=== PATIENT | female | born 1960 | race Caucasian/White ===

== ENCOUNTER 2017-03-02 19:45 | Emergency (ER) | payer MEDICAID, OTHER ==
[~2017-03-02] VITALS: Ht 167.6 cm; Wt 72.6 kg
[2017-03-02] MEDS ORDERED: NF-DICLTB PO (20:06)
[2017-03-02] MEDS ORDERED: CLON0.5T3 PO (20:06)
[2017-03-02] MEDS ORDERED: OXYC-197 PO (20:06)
[2017-03-02] MEDS ORDERED: GABA600T2 PO (20:06)
[2017-03-02] MEDS ORDERED: CYCL10TA9 PO (20:06)
--- NOTE | 2017-03-02 20:12 | ED Cough/URI ---
General Chief Complaint: Cough/Cold/Flu Symptoms Stated Complaint: COUGH SORE THROAT FEVER Source: patient Exam Limitations: no limitations History of Present Illness Time seen by provider: 20:02 Initial Comments Patient presents with a few weeks of cough, shortness of breath, sore throat, hoarseness, no fever or chills but some post tussive emesis. She smokes one pack a day states that she does not have COPD. She is followed recently with [facility]. No sick contacts or travel outside the [facility]. No skin rash. She has had headaches for the past 2 or 3 days and a fullness in her ears. Allergies and Home Medications Allergies Coded Allergies: No Known Drug Allergies (Unverified , 03/02/17) Home Medications Clonazepam 0.5 Mg Tablet, 0.5 MG PO BID PRN for prn, (Reported) Cyclobenzaprine HCl 10 Mg Tablet, 10 MG PO BID, #60 (Reported) Diclofenac/Misoprostol 1 Tab Tab, Unknown Dose PO UD, (Reported) Gabapentin 600 Mg Tablet, 600 MG PO TID PRN for prn, (Reported) Oxycodone HCl/Acetaminophen 1 Each Tablet, 1 EACH PO DAILY PRN for prn, ( Reported) Constitutional: No chills, No diaphoresis, No fever, malaise EENTM: hoarseness, mouth swelling, tearing, throat swelling, No ear discharge, No ear pain Respiratory: cough, phlegm, short of breath Cardiovascular: No Hx of Intervention, No palpitations, No syncope Gastrointestinal: No abdominal pain, No constipation, No diarrhea, nausea, No vomiting Genitourinary: No dysuria, No hematuria Skin: No pruritus, No rash Past Tffjrel-Torlzx-Yrxdhs Hx Patient Social History Alcohol Use: Rarely Uses Smoking Status: Current Everyday Smoker (1 ppd) Type Used: Cigarettes Recent Foreign Travel: No Contact w/Someone Who Travel: No Physical Exam Vital Signs Vital Sign - Last 12Hours 03/02/17 19:53 Temp 97.4 Pulse 81 Resp 20 B/P (MAP) 137/90 Pulse Ox 99 O2 Delivery Room Air Capillary Refill : General Appearance: WD/WN, mild distress Eyes: Bilateral Eye EOMI, Bilateral Eye Normal Inspection, Bilateral Eye PERRL HEENT: TM abnormal (L) (retracted), pharyngeal erythema Neck: full range of motion, supple, normal inspection, tender midline Respiratory: chest non-tender, normal breath sounds, wheezing (few scattered) Cardiovascular: normal peripheral pulses, regular rate, rhythm, no edema, no murmur Gastrointestinal: normal bowel sounds, non tender, soft Neurologic/Psychiatric: alert, oriented x 3 Skin: normal color, warm/dry Progress/Results/Core Measures Results/Orders Lab Results Laboratory Tests Test 03/02/17 20:05 Range/Units Group A Streptococcus Screen NEGATIVE NEGATIVE My Orders Orders - JAI HAND Rapid Strep A Screen (03/02/17 20:12) Chest Pa/Lat (2 View) (03/02/17 20:12) Albuterol Pre-Mix Nebs (Rt) (Proventil P (03/02/17 20:15) Vital Signs/I&O Vital Sign - Last 12Hours 03/02/17 03/02/17 03/02/17 19:53 19:53 20:20 Temp 97.4 Pulse 81 Resp 20 B/P (MAP) 137/90 Pulse Ox 99 98 O2 Delivery Room Air Room Air Progress Note : Time: 20:11 Progress Note Patient with long-standing smoking history now with upper respirator symptoms and some wheezing. We'll obtain a chest x-ray gave her a breathing treatment and send her out on appropriate therapy. Flonase for her eustachian dysfunction. Strep screen Diagnostic Imaging Diagonstic Imaging: Xray Plain Films/CT/US/NM/MRI: chest Comments 10 ribs above the non-flattened diaphragm with normal looking lung parenchyma. No signs of edema or other cardiopulmonary abnormality acutely. She does not have any other osseous or soft tissue findings acutely. Reviewed: Reviewed by Me Departure Impression Impression: Primary Impression: Upper respiratory infection Qualified Codes: J06.9 - Acute upper respiratory infection, unspecified; B97.89 - Other viral agents as the cause of diseases classified elsewhere Additional Impression: Bronchitis Disposition: 01 HOME, SELF-CARE Condition: Stable Departure-Patient Inst. Decision time for Depature: 20:35 Referrals: BLACK HUMPHREY MD (PCP) Primary Care Physician Patient Instructions: Acute Bronchitis, Adult (DC) Add. Discharge Instructions: You have been diagnosed with an upper respiratory tract infection most likely viral. There is been a negative strep screen however in 2 days you can call back up to the hospital and get the results of the culture to see if it was indeed positive for strep. If this is the case then you should fill the antibiotic prescription that was sent out, azithromycin and take it as prescribed. If you're getting worse symptoms of the next 2-3 days then you should fill the azithromycin as well. Otherwise you have albuterol to be used if you're having wheezing or tightness in her chest. You have Tessalon Perles be taken every 6 hours if you're having a cough. You've also been given a short course of prednisone to be taken over the next 5 days. It is okay to spread it out every other day if you're feeling wired on the redness on as this is a normal side effect to steroids in general. The symptoms usually resolve in 7-14 days. If you're having new or worsening or worrisome symptoms you should return to the ER or to your primary care physician. All discharge instructions reviewed with patient and/or family. Voiced understanding. Scripts Benzonatate (Tessalon Perle) 100 Mg Capsule 100 MG PO Q6H Y for COUGH, #30 CAP 0 Refills Prov: JAI HAND 03/02/17 Albuterol Sulfate (PROAIR HFA) 1 Puff Puff 2 PUFF IH Q4H Y for WHEEZING, #1 EACH 0 Refills 1 PUFF = 90 MCG Prov: JAI HAND 03/02/17 Prednisone (Prednisone) 20 Mg Tab 20 MG PO DAILY for 5 Days, #5 TAB 0 Refills Prov: JAI HAND 03/02/17 Azithromycin (Azithromycin) 250 Mg Tablet 250 MG PO UD, #6 TAB 0 Refills TAKE 2 TABLETS ON DAY ONE THEN TAKE 1 TABLET DAILY FOR FOUR MORE DAYS Prov: JAI HAND 03/02/17 Copy Copies To 1: TAMARA GALLARDO DO JAI HAND Mar 02, 2017 20:12
[2017-03-02] MEDS ORDERED: RT-ALBUTEROL SULF 2.5 MG/3 ML PRE-MIX VIAL IH SCH (20:15)
--- NOTE | 2017-03-02 20:31 | Diagnostic Imaging Report ---
INDICATION: Cough, congestion and wheezing EXAMINATION: PA and lateral views of the chest. FINDINGS: The heart size and vascularity are normal. Lungs are clear. There is no effusion. There is no acute bony abnormality. IMPRESSION: No acute abnormality is seen. Dictated by: Dictated on workstation # [id number]
[2017-03-02] MEDS ORDERED: AZIT250T5 PO ×2 (20:39→20:49)
[2017-03-02] MEDS ORDERED: RT-ALBUINH IH ×2 (20:39→20:49)
[2017-03-02] MEDS ORDERED: PRD20T PO ×2 (20:39→20:49)
[2017-03-02] MEDS ORDERED: BENZ-13 PO ×2 (20:39→20:49)
[2017-03-02] MEDS ORDERED: ONDN4T PO (20:49)
[2017-03-02 20:53] VITALS: BP 118/81
== END 2017-03-02 20:53 | disposition home or self-care (01) ==
LOC: EDUNIT# 19:45 → ER 19:49
DX: J06.9 Acute upper respiratory infection, unspecified (principal); J40 Bronchitis, not specified as acute or chronic; F17.210 Nicotine dependence, cigarettes, uncomplicated
CPT/HCPCS: 71020; 87430; 94640; 99282

== ENCOUNTER 2017-03-23 10:58 | Emergency (ER) | payer MEDICAID ==
[~2017-03-23] VITALS: Ht 167.6 cm; Wt 68.0 kg
[~2017-03-23 10:58] MED LIST: AZIT250T5 PO; BENZ-13 PO; CLON0.5T3 PO; CYCL10TA9 PO; GABA600T2 PO; NF-DICLTB PO; ONDN4T PO; OXYC-197 PO; PRD20T PO; RT-ALBUINH IH
[2017-03-23] MEDS ORDERED: RT-ALBUTEROL/IPRATROPIUM 3 ML (DUONEB) VIAL ONE (11:05)
[2017-03-23] MEDS ORDERED: RT-ALBUTEROL SULF 2.5 MG/3 ML PRE-MIX VIAL ONE (11:07)
[2017-03-23] MEDS ORDERED: DEXAMETHASONE PF 10 MG/ML (DECADRON) VIAL ONE (11:07)
[2017-03-23] MEDS ORDERED: DEXAMETHASONE 4 MG/ML SDV (DECADRON) IH ONE (11:15)
[2017-03-23] MEDS ORDERED: RT-ALBUTEROL/IPRATROPIUM 3 ML (DUONEB) VIAL INH ONE (11:15)
[2017-03-23] MEDS ORDERED: ONDANSETRON 4 MG (ZOFRAN) ORAL DISSOLVE TAB ONE (11:15)
[2017-03-23] MEDS ORDERED: predniSONE 20 MG TAB PO ONE (11:15)
--- NOTE | 2017-03-23 11:29 | ED Cough/URI ---
General Chief Complaint: Cough/Cold/Flu Symptoms Stated Complaint: COUGH Nursing Triage Note: ILL SINCE FRIDAY, COUGHING, FEVER. COUGHING UP GREEN. COMPLETED STEROIDS AND ANTIBIOTICS Source: patient History of Present Illness Time seen by provider: 11:05 Initial Comments C/O PRODUCTIVE COUGH X 2 WEEKS--GREEN SPUTUM PT HAS HAD SUBJECTIVE FEVER AND SWEATS SINCE FRIDAY C/O SHORTNESS OF BREATH AND WHEEZING WAS SEEN HERE 03/02/17 FOR THIS PROBLEM AND WAS GIVEN RX FOR PREDNISONE, TESSALON, ALBUTEROL AND ZITHROMAX--STATES SYMPTOMS GOT BETTER, THEN WORSENED WHEN MEDICATIONS WERE FINISHED PCP: DR. Petra HUMPHREY Allergies and Home Medications Allergies Coded Allergies: morphine (Unverified Allergy, Unknown, 03/23/17) Home Medications Albuterol Sulfate 1 Puff Puff, 2 PUFF IH Q4H PRN for WHEEZING, #1 Ref 0 1 PUFF = 90 MCG Prescribed by: JAI HAND on 03/02/172048 Azithromycin 250 Mg Tablet, 250 MG PO UD, #6 Ref 0 TAKE 2 TABLETS ON DAY ONE THEN TAKE 1 TABLET DAILY FOR FOUR MORE DAYS Prescribed by: JAI HAND on 03/02/172048 Benzonatate 100 Mg Capsule, 100 MG PO Q6H PRN for COUGH, #30 Ref 0 Prescribed by: JAI HAND on 03/02/172048 Clonazepam 0.5 Mg Tablet, 0.5 MG PO BID PRN for prn, (Reported) Cyclobenzaprine HCl 10 Mg Tablet, 10 MG PO BID, #60 (Reported) Diclofenac/Misoprostol 1 Tab Tab, Unknown Dose PO UD, (Reported) Gabapentin 600 Mg Tablet, 600 MG PO TID PRN for prn, (Reported) Ondansetron HCl 4 Mg Tab, 4 MG PO Q6H PRN for NAUSEA/VOMITING-1ST LINE, #20 Ref 0 Prescribed by: JAI HAND on 03/02/172048 Oxycodone HCl/Acetaminophen 1 Each Tablet, 1 EACH PO DAILY PRN for prn, ( Reported) Prednisone 20 Mg Tab, 20 MG PO DAILY for 5 Days, #5 Ref 0 Prescribed by: JAI HAND on 03/02/172048 Constitutional: see HPI, fever EENTM: nose congestion, see HPI Respiratory: see HPI, cough, short of breath, wheezing Cardiovascular: no symptoms reported Gastrointestinal: no symptoms reported Genitourinary: no symptoms reported Musculoskeletal: no symptoms reported Skin: no symptoms reported Psychiatric/Neurological: No Symptoms Reported Hematologic/Lymphatic: No Symptoms Reported Immunological/Allergic: no symptoms reported Past Znjethn-Dtrzwi-Qcldha Hx Patient Social History Alcohol Use: Rarely Uses Recreational Drug Use: No (PAST HISTORY) Smoking Status: Current Everyday Smoker (1 PPD) Type Used: Cigarettes Recent Foreign Travel: No Contact w/Someone Who Travel: No Recent Infectious Disease Expo: No Recent Hopitalizations: No Immunizations Up To Date Tetanus Booster (TDap): Unknown PED Vaccines UTD: Yes Seasonal Allergies Seasonal Allergies: No Surgeries HX Surgeries: Yes (BACK, ROTATOR CUFF) Surgeries: Appendectomy, Orthopedic Respiratory Hx Respiratory Disorders: No Cardiovascular Hx Cardiac Disorders: No Neurological Hx Neurological Disorders: No Reproductive System Hx Reproductive Disorders: No Genitourinary Hx Genitourinary Disorders: No Gastrointestinal Hx Gastrointestinal Disorders: No Musculoskeletal Hx Musculoskeletal Disorders: Yes Musculoskeletal Disorders: Arthritis, Chronic Back Pain Endocrine Hx Endocrine Disorders: No HEENT HX ENT Disorders: No Cancer Hx Cancer: No Psychosocial Hx Psychiatric Problems: No Integumentary HX Skin/Integumentary Disorder: No Blood Transfusions Hx Blood Disorders: No Physical Exam Vital Signs Vital Sign - Last 12Hours 03/23/17 11:06 Temp 98.3 Pulse 93 Resp 24 B/P (MAP) 145/100 Pulse Ox 96 O2 Delivery Room Air Capillary Refill : Less Than 3 Seconds General Appearance: WD/WN, no apparent distress, other (CONTINUOUS HARSH COUGH , + ODOR OF CIGARETTES) HEENT: PERRL/EOMI, other (NASAL MUCOSAL EDEMA) Respiratory: no respiratory distress, no accessory muscle use, wheezing ( AUDIBLE EXPIRATORY WHEEZING), other (FREQUENT TIGHT/HARSH COUGH) Cardiovascular: regular rate, rhythm, no murmur Gastrointestinal: non tender, soft Extremities: no pedal edema, normal capillary refill Neurologic/Psychiatric: sanding machine buffer II-XII nml as tested, no motor/sensory deficits, alert, oriented x 3, other (ANXIOUS) Skin: normal color, warm/dry Progress/Results/Core Measures Results/Orders Micro Results Microbiology 03/23/17 Influenza Types A,B Antigen (TERRELL) - Final, Complete My Orders Orders - MAYKEL VERNON DO Albuterol/Ipra Inhalation Soln (Duoneb I (03/23/17 11:05) Albuterol Pre-Mix Nebs (Rt) (Proventil P (03/23/17 11:07) Prednisone Tablet (Deltasone Tablet) (03/23/17 11:15) Chest Pa/Lat (2 View) (03/23/17 11:11) Influenza A And B Antigens (03/23/17 11:11) Albuterol/Ipra Inhalation Soln (Duoneb I (03/23/17 11:15) Dexamethasone Injection (Decadron Inject (03/23/17 11:15) Rt Request For Service (03/23/17 11:11) Svn Sm Volume Nebulizer Rt-Rfs (03/23/17 11:11) Dexamethasone Pf Injection (Decadron Pf (03/23/17 11:07) Ondansetron Oral Dissolve Tab (Zofran (03/23/17 11:30) Ondansetron Oral Dissolve Tab (Zofran (03/23/17 11:15) Medications Given in ED Current Medications Medications Dose Ordered Sig/Rosi Route Start Time Stop Time Status Last Admin Dose Admin Albuterol Sulfate 2.5 mg STK-MED ONCE .ROUTE 03/23/17 11:07 03/23/17 11:11 DC 03/23/17 11:22 2.5 MG Albuterol/ Ipratropium 3 ml ONCE ONCE INH 03/23/17 11:15 03/23/17 11:16 DC 03/23/17 11:19 3 ML Dexamethasone Sodium Phosphate 20 mg ONCE ONCE IH 03/23/17 11:15 03/23/17 11:16 DC 03/23/17 11:22 20 MG Ondansetron HCl 4 mg ONCE ONCE PO 03/23/17 11:30 03/23/17 11:31 DC 03/23/17 11:21 4 MG Vital Signs/I&O Vital Sign - Last 12Hours 03/23/17 03/23/17 03/23/17 11:06 11:06 11:23 Temp 98.3 Pulse 93 Resp 24 B/P (MAP) 145/100 Pulse Ox 96 95 O2 Delivery Room Air Blood Pressure Mean: 115 Progress Note : Progress Note LUNGS ESSENTIALLY CLEAR AFTER NEB TREATMENT AND COUGH DECREASED DOES HAVE ACCESS TO NEBULIZER AT HOME, AND WOULD LIKE RX FOR MEDICATION FOR IT Diagnostic Imaging Comments CXR--NO ACUTE PROCESS, PER RADIOLOGIST REPORT @ 1146 Reviewed: Reviewed by Me Departure Impression Impression: Primary Impression: Bronchitis Disposition: 01 HOME, SELF-CARE Condition: Improved Departure-Patient Inst. Referrals: BLACK HUMPHREY MD (PCP/Family) Primary Care Physician Patient Instructions: Acute Bronchitis, Adult (DC) Add. Discharge Instructions: NO SMOKING TYLENOL AND MOTRIN NEEDED FOR PAIN OR FEVER FOLLOW UP WITH DR. HUMPHREY IN 2-3 DAYS FOR FURTHER CARE All discharge instructions reviewed with patient and/or family. Voiced understanding. Scripts Benzonatate (Tessalon Perle) 100 Mg Capsule 1-2 TAB PO TID for Cough, #30 CAP Prov: MAYKEL VERNON DO 03/23/17 Budesonide (Pulmicort) 1 Mg/2 Ml Ampul.neb 1 MG IH BID, #1 INHALER Prov: MAYKEL VERNON DO 03/23/17 D-Methorphan Hb/Prometh HCl (Promethazine-Dm Syrup) 118 Ml Syrup 1-2 TSP PO Q4H for Cough, #120 ML Prov: MAYKEL VERNON DO 03/23/17 Methylprednisolone (Medrol) 4 Mg Tab.ds.pk 4 MG PO UD, #1 PKG Prov: MAYKEL VERNON DO 03/23/17 Levofloxacin (Levaquin) 500 Mg Tablet 500 MG PO DAILY for INFECTION, #10 TAB Prov: MAYKEL VERNON DO 03/23/17 Albuterol Sulfate (Albuterol Sulfate) 2.5 Mg/3 Ml Vial.neb 2.5 MG IH Q4H, #1 EA Prov: MAYKEL VERNON DO 03/23/17 MAYKEL VERNON DO March 23, 2017 11:29
[2017-03-23] MEDS ORDERED: ONDANSETRON 4 MG (ZOFRAN) ORAL DISSOLVE TAB PO ONE (11:30)
--- NOTE | 2017-03-23 11:44 | Diagnostic Imaging Report ---
EXAMINATION: PA and lateral chest at 1140 AM INDICATION: Cough The heart size is within normal limits and stable when compared to 03/02/17. The lungs are clear. There is still no evidence for failure, pneumonia or for a pleural effusion to suggest an acute abnormality. There is a very small area of slightly increased density overlying the left lung base on the PA view. This is probably secondary to superimposition. The mediastinum is not widened. The osseous structures are intact. IMPRESSION: There is no evidence for an acute cardiopulmonary abnormality. Dictated by: Dictated on workstation # [id number]
[2017-03-23] MEDS ORDERED: BUDE1AMP IH (11:54)
[2017-03-23] MEDS ORDERED: METH4TAB PO (11:54)
[2017-03-23] MEDS ORDERED: BENZ-13 PO (11:54)
[2017-03-23] MEDS ORDERED: D-ME118S7 PO (11:54)
[2017-03-23] MEDS ORDERED: ALBU2.5V4 IH (11:54)
[2017-03-23] MEDS ORDERED: LEVO500T2 PO (11:54)
[2017-03-23 12:03] VITALS: BP 140/81
== END 2017-03-23 12:02 | disposition home or self-care (01) ==
LOC: EDUNIT# 10:58 → ER 10:59
DX: J40 Bronchitis, not specified as acute or chronic (principal); F17.210 Nicotine dependence, cigarettes, uncomplicated; Z79.899 Other long term (current) drug therapy
CPT/HCPCS: 71020; 87804; 94640; 99282

== ENCOUNTER → 2017-07-11 | Outpatient (CLI) | payer MEDICAID ==
[~2017-07-11] MED LIST changes: +ALBU2.5V4 IH; +AZIT250T12 PO; -AZIT250T5 PO; +BUDE1AMP IH; +D-ME118S7 PO; +LEVO500T2 PO; +METH4TAB PO
--- NOTE | 2017-07-29 19:32 | Diagnostic Imaging Report ---
Bilateral screening mammogram 2D views with tomosynthesis The current study was also evaluated with a Computer Aided Detection (CAD) system. Indication: Screening. No current complaints stated on the questionnaire. COMPARISON: 02/02/15 FINDINGS: The breasts are composed of heterogeneously dense parenchyma which may decrease mammographic sensitivity. There are benign-appearing calcifications seen. Allowing for technique and positional differences, no suspicious change is seen. IMPRESSION: No significant change. ACR BI-RADS Category 2: Benign findings. Result letter will be mailed to the patient. Note: At least 10% of breast cancer is not imaged by mammography. Dictated by: Dictated on workstation # [id number]
== END ==
LOC: RAD 12:57
PROVIDERS: ATTEND Family Medicine
DX: Z12.31 Encounter for screening mammogram for malignant neoplasm of breast (principal)
CPT/HCPCS: 77067

== ENCOUNTER 2017-10-19 10:19 | Emergency (ER) | payer MEDICAID ==
[~2017-10-19] VITALS: Ht 167.6 cm; Wt 68.0 kg
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
--- OUTSIDE RECORDS SUMMARY | 2017-10-19 10:24 | XMS REPORT ---
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 285955570 Problem Anxiety F41.9 Active 29372008 ALLERGIES Substance Reaction Event Type Date Status Morphine Sulfate nausea Drug Allergy Oct, Active SOCIAL HISTORY No smoking Hx information available PLAN OF CARE Activity Details Follow Up 4 Months Reason:Pain mgmt VITAL SIGNS Height 65 in 2016-10-30 Weight 167.1 lbs 2016-10-30 Temperature 97.9 degrees Fahrenheit 2016-10-30 Heart Rate 84 bpm 2016-10-30 Respiratory Rate 20 2016-10-30 BMI 27.80 kg/m2 2016-10-30 Blood pressure systolic 122 mmHg 2016-10-30 Blood pressure diastolic 82 mmHg 2016-10-30 MEDICATIONS Medication Instructions Dosage Frequency Start Date End Date Duration Status Gabapentin 800 MG Orally 3 times a day 1 tablet 8h 30 days Active Cyclobenzaprine HCl 10 MG TAKE ONE TABLET BY MOUTH TWICE DAILY 30 Active Klonopin 0.5 MG Orally Twice a day 1 tablet 12h 28 days Active Cymbalta 60 mg Orally Once a day 1 capsule 24h Dec, 90 days Active Hydrocodone-Acetaminophen 5-325 MG Orally Once a day 1 tablet as needed 24h Oct, 28 days Active Arthrotec 75-0.2 MG Orally Once a day 1 tablet 24h 25 Aug, 2016 90 days Active RESULTS Name Result Date Reference Range AMERITOX 2016-10-30 PROCEDURES Procedure Date Ordered Related Diagnosis Body Site CRYOTHERAPY OF SKIN 2016-10-30 N/A CRYOTHERAPY OF SKIN Oct 30, 2016 No Charge Oct 30, 2016 Office Visit, Est Pt., Level 3 Oct 30, 2016 IMMUNIZATIONS No Known Immunizations
--- OUTSIDE RECORDS SUMMARY | 2017-10-19 10:24 | XMS REPORT ---
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
--- OUTSIDE RECORDS SUMMARY | 2017-10-19 10:24 | XMS REPORT ---
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 109621970 Problem Anxiety F41.9 Active 82411665 ALLERGIES Substance Reaction Event Type Date Status Morphine Sulfate nausea Drug Allergy Oct, Active SOCIAL HISTORY No smoking Hx information available PLAN OF CARE Activity Details Follow Up prn Reason: VITAL SIGNS Height 65 in 2016-11-12 Weight 167.2 lbs 2016-11-12 Temperature 98.4 degrees Fahrenheit 2016-11-12 Heart Rate 80 bpm 2016-11-12 Respiratory Rate 20 2016-11-12 BMI 27.82 kg/m2 2016-11-12 Blood pressure systolic 114 mmHg 2016-11-12 Blood pressure diastolic 80 mmHg 2016-11-12 MEDICATIONS Medication Instructions Dosage Frequency Start Date End Date Duration Status Cyclobenzaprine HCl 10 MG TAKE ONE TABLET BY MOUTH TWICE DAILY 30 Active Klonopin 0.5 MG Orally Twice a day 1 tablet 12h 28 days Active Arthrotec 75-0.2 MG Orally Once a day 1 tablet 24h Aug, 90 days Active Gabapentin 800 MG Orally 3 times a day 1 tablet 8h 30 days Active Cymbalta 60 mg Orally Once a day 1 capsule 24h Dec, 90 days Active Hydrocodone-Acetaminophen 5-325 MG Orally Once a day 1 tablet as needed 24h Oct, 28 days Active RESULTS Name Result Date Reference Range PDF Report 2016-11-12 PDF Report1 LCLS PAP TEST W/ HPV REGARDLESS 2016-11-12 DIAGNOSIS: Specimen adequacy: Clinician provided ICD10: Performed by: . . Note: HPV, high-risk Negative Negative HEMOCCULT (IN HOUSE) 2016-11-12 RESULTS Negative Control + Lot # [id number] Exp date Aug 2017 Mammogram, Bilateral Screening 2016-11-20 PROCEDURES Procedure Date Ordered Related Diagnosis Body Site SPECIMEN HANDLING Nov 12, 2016 TEST FOR BLOOD, FECES Nov 12, 2016 Office Visit, Est Pt., Level 4 Nov 12, 2016 IMMUNIZATIONS No Known Immunizations
--- OUTSIDE RECORDS SUMMARY | 2017-10-19 10:24 | XMS REPORT ---
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
--- OUTSIDE RECORDS SUMMARY | 2017-10-19 10:25 | XMS REPORT ---
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
--- OUTSIDE RECORDS SUMMARY | 2017-10-19 10:25 | XMS REPORT ---
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
[2017-10-19] MEDS ORDERED: LIDOCAINE 2% 20 ML (XYLOCAINE) VIAL INJ ONE (11:15)
[2017-10-19] MEDS ORDERED: SULF1TAB35 PO (11:16)
--- NOTE | 2017-10-19 11:16 | ED Integumentary General ---
General Chief Complaint: Skin/Wound Problems Stated Complaint: R ARM KNOT/WOUND Source: patient Exam Limitations: no limitations History of Present Illness Time seen by provider: 11:13 Initial Comments ER with a one-week history of bumps to the right armpit that are very painful and red. A few weeks ago she had a similar presentation to the left armpit. No fevers or chills. Timing/Duration: constant Severity: moderate Allergies and Home Medications Allergies Coded Allergies: morphine (Unverified Allergy, Unknown, 03/23/17) Home Medications Albuterol Sulfate 1 Puff Puff, 2 PUFF IH Q4H PRN for WHEEZING, #1 Ref 0 1 PUFF = 90 MCG Prescribed by: JAI HAND on 03/02/172048 Albuterol Sulfate 2.5 Mg/3 Ml Vial.neb, 2.5 MG IH Q4H, #1 Prescribed by: MAYKEL VERNON on 03/23/17 1154 Azithromycin 250 Mg Tablet, 250 MG PO UD, #6 Ref 0 TAKE 2 TABLETS ON DAY ONE THEN TAKE 1 TABLET DAILY FOR FOUR MORE DAYS Prescribed by: JAI HAND on 03/02/172048 Benzonatate 100 Mg Capsule, 100 MG PO Q6H PRN for COUGH, #30 Ref 0 Prescribed by: JAI HAND on 03/02/172048 Benzonatate 100 Mg Capsule, 1-2 TAB PO TID, #30 Prescribed by: MAYKEL VERNON on 03/23/17 1154 Budesonide 1 Mg/2 Ml Ampul.neb, 1 MG IH BID, #1 Prescribed by: MAYKEL VERNON on 03/23/17 1154 Clonazepam 0.5 Mg Tablet, 0.5 MG PO BID PRN for prn, (Reported) Cyclobenzaprine HCl 10 Mg Tablet, 10 MG PO BID, #60 (Reported) D-Methorphan Hb/Prometh HCl 118 Ml Syrup, 1-2 TSP PO Q4H, #120 Prescribed by: MAYKEL VERNON on 03/23/17 1154 Diclofenac/Misoprostol 1 Tab Tab, Unknown Dose PO UD, (Reported) Gabapentin 600 Mg Tablet, 600 MG PO TID PRN for prn, (Reported) Levofloxacin 500 Mg Tablet, 500 MG PO DAILY, #10 Prescribed by: MAYKEL VERNON on 03/23/17 1154 Methylprednisolone 4 Mg Tab.ds.pk, 4 MG PO UD, #1 Prescribed by: MAYKEL VERNON on 03/23/17 1154 Ondansetron HCl 4 Mg Tab, 4 MG PO Q6H PRN for NAUSEA/VOMITING-1ST LINE, #20 Ref 0 Prescribed by: JAI HAND on 03/02/17 204 Oxycodone HCl/Acetaminophen 1 Each Tablet, 1 EACH PO DAILY PRN for prn, ( Reported) Prednisone 20 Mg Tab, 20 MG PO DAILY for 5 Days, #5 Ref 0 Prescribed by: JAI HAND on 03/02/172048 Sulfamethoxazole/Trimethoprim 1 Each Tablet, 1 EACH PO BID, #14 Prescribed by: CARLITOS FOSTER on 10/19/17 1116 Constitutional: see HPI EENTM: see HPI Respiratory: no symptoms reported Cardiovascular: no symptoms reported Genitourinary: no symptoms reported Musculoskeletal: no symptoms reported Skin: see HPI Psychiatric/Neurological: No Symptoms Reported Endocrine: No Symptoms Reported Past Tzjzkid-Ibmwno-Hdauxv Hx Patient Social History Type Used: Cigarettes Recent Foreign Travel: No Contact w/Someone Who Travel: No Recent Hopitalizations: No Immunizations Up To Date Tetanus Booster (TDap): Unknown PED Vaccines UTD: Yes Seasonal Allergies Seasonal Allergies: No Surgeries Surgeries: Appendectomy, Orthopedic Reproductive System Hx Reproductive Disorders: No Musculoskeletal Musculoskeletal Disorders: Arthritis, Chronic Back Pain Physical Exam Vital Signs Vital Sign - Last 12Hours 10/19/17 11:13 Temp 97.0 Pulse 80 Resp 22 B/P (MAP) 124/89 (101) Pulse Ox 100 O2 Delivery Room Air Capillary Refill : General Appearance: WD/WN, no apparent distress HEENT: PERRL/EOMI, normal ENT inspection Neck: non-tender, full range of motion Respiratory: no respiratory distress, no accessory muscle use Gastrointestinal: non tender, soft Neurologic/Psychiatric: alert, normal mood/affect, oriented x 3 Skin: normal color, warm/dry Skin Problem Location: upper extremities Skin Problem Character: abscess I&D : Blade Size: 11 Progress Anesthetized with 1 mL of 2 percent lidocaine without epinephrine. Wound then incised with an 11 blade scalpel. Moderate amount of purulent material expressed. Culture collected and sent to lab. Wound gently irrigated with Betadine/saline solution. Covered with gauze. Progress/Results/Core Measures Results/Orders My Orders Orders - CARLITOS FOSTER APRN Lidocaine 2% Injection 20 Ml (Xylocaine (10/19/17 11:15) Wound Culture (10/19/17 11:11) Medications Given in ED Current Medications Medications Dose Ordered Sig/Rosi Route Start Time Stop Time Status Last Admin Dose Admin Lidocaine HCl 2 ml ONCE ONCE INJ 10/19/17 11:15 10/19/17 11:16 DC 10/19/17 11:24 2 ML Vital Signs/I&O Vital Sign - Last 12Hours 10/19/17 10/19/17 11:13 11:24 Temp 97.0 97.0 Pulse 80 Resp 22 B/P (MAP) 124/89 (101) Pulse Ox 100 O2 Delivery Room Air Departure Impression Impression: Primary Impression: Abscess Disposition: 01 HOME, SELF-CARE Condition: Stable Departure-Patient Inst. Decision time for Depature: 11:14 Referrals: MISSY VERMA DO (PCP/Family) Primary Care Physician Patient Instructions: Abscess Incision and Drainage (DC) Add. Discharge Instructions: 1. Return to ER for any concerns such as increasing redness pain or fevers. Take antibiotics as directed. Follow-up with your doctor next week All discharge instructions reviewed with patient and/or family. Voiced understanding. Scripts Sulfamethoxazole/Trimethoprim (Bactrim Ds Tablet) 1 Each Tablet 1 EACH PO BID, #14 TAB Prov: CARLITOS FOSTER APRN 10/19/17 CARLITOS FOSTER APRN Oct 19, 2017 11:16
[2017-10-19 11:34] VITALS: BP 124/89
== END 2017-10-19 11:34 | disposition home or self-care (01) ==
LOC: EDUNIT# 10:19 → ER 10:20
DX: L02.413 Cutaneous abscess of right upper limb (principal); M19.90 Unspecified osteoarthritis, unspecified site; Z90.49 Acquired absence of other specified parts of digestive tract
CPT/HCPCS: 87070; 87077; 87186; 87205; 99282

== ENCOUNTER → 2018-02-05 | Outpatient (CLI) | payer MEDICAID ==
[~2018-02-05] MED LIST changes: +SULF1TAB35 PO
--- NOTE | 2018-02-05 10:38 | Diagnostic Imaging Report ---
INDICATION: Acute left lower quadrant pain. TIME OF EXAM: 9:42 AM FINDINGS: Single view of the abdomen was obtained. The bowel gas pattern is nonobstructed. No pathologic calcifications are identified. No free air is identified on this single view. There are degenerative changes in the lower lumbar spine. IMPRESSION: No acute abnormality detected. Called to Jenny at 10:35 by cvb. Dictated by: Dictated on workstation # [id number]
== END ==
LOC: RAD 09:02
PROVIDERS: ATTEND Nurse Practitioner Family
DX: R10.32 Left lower quadrant pain (principal)
CPT/HCPCS: 74018

== ENCOUNTER → 2018-03-02 | Outpatient (CLI) | payer MEDICAID ==
[~2018-03-02] MED LIST changes: +CLON0.5T13 PO; -CLON0.5T3 PO
--- NOTE | 2018-03-02 10:36 | Diagnostic Imaging Report ---
CLINICAL INDICATION: Patient has chronic low back pain and history of previous low back surgery in 2004. EXAMINATION: MRI of the lumbar spine performed without IV contrast. Sequences include sagittal T2, sagittal T1, sagittal T2 fat-sat, and axial T2. COMPARISON: None. FINDINGS: There is no evidence of acute lumbar spine fracture or dislocation. There is a moderate amount of Modic type I degenerative signal changes involving the right L4-L5 endplates and small amount involving the right anterior T11-T12 endplates. Remainder of the lumbar vertebra have normal T1-T2 signal. There is no significant paraspinal soft tissue abnormality. The distal thoracic spinal cord, conus medullaris, and cauda equina are unremarkable. The conus medullaris tip is seen at the upper L1 vertebral body level. There are mild to moderately hypertrophic spurs seen throughout the thoracolumbar spine. There is mild right curvature of the lumbar spine. T11-T12: There is a diffuse disc bulge with a superimposed left paracentral disc protrusion/herniation which causes mild central canal narrowing. There is no significant neural foramen narrowing. There is mild right facet arthropathy. T12-L1: There is no significant central spinal canal or neural foramen narrowing. L1-L2: There are small anterior spurs. There is no significant central spinal canal or neural foramen narrowing. L2-L3: There is mild diffuse disc bulge with superimposed small disc protrusion/herniation extending into the left foraminal region causing mild left neural foramen narrowing. There is no significant central canal narrowing. There is mild facet arthropathy. There is no significant right neural foramen narrowing. L3-L4: There is a diffuse disc bulge with mild facet arthropathy. There is moderate left neural foramen narrowing and no significant right neural foramen narrowing. There appears to be left L4 laminotomy. L4-L5: There is a diffuse disc bulge with gyowzzdk-jw-tbwzro loss of intervertebral disc height with the right side affected the most. There are hypertrophic far right lateral disc spurs. There is severe right neural foramen narrowing due to disc spurs and right facet arthropathy/hypertrophy. There is mild left facet arthropathy. There is no significant central canal narrowing and there is no significant left neural foramen narrowing. L5-S1: There is a minimal sized posterior disc bulge. There is no significant central canal or neural foramen narrowing. There is minimal facet arthropathy. IMPRESSION: 1: There is no acute lumbar spine fracture or dislocation. Suspected L4 left laminotomy. 2: There is mild dextroscoliosis of the lumbar spinal with multilevel thoracolumbar spine degenerative disc disease which is described in detail above. 3: There is severe right L4-L5 neural foramen narrowing due to disc spurs and facet arthropathy. 4: There is moderate left L3-L4 neural foramen narrowing due to disc herniation and facet arthropathy. 5: There is an L2-L3 diffuse disc bulge which contributes to mild left neural foramen narrowing. Dictated by: Dictated on workstation # [id number]
--- NOTE | 2018-03-02 11:50 | Diagnostic Imaging Report ---
PROCEDURE: MRI left upper extremity without contrast. TECHNIQUE: Multiplanar, multisequence MR imaging of the left shoulder was performed without contrast. COMPARISON: None available. INDICATION: Left shoulder pain. Prior rotator cuff repair. FINDINGS: Rotator cuff: There are surgical changes from superior cuff repair which include numerous soft tissue foci of susceptibility artifact. Additionally there appear to be three soft tissue anchor tracts within the mid humeral head, and there is potential that the central soft tissue anchor may have been pulled free from its osseous anchor site. There is no recurrent full-thickness rotator cuff tear. Heterogeneous signal within the repaired posterior supraspinatus and anterior infraspinatus may relate to prior surgery and debridement. No rotator cuff muscle atrophy. Glenoid labrum: By non-arthrogram imaging, the glenoid labrum appears intact. No para-labral cyst. Long head of biceps: Long head of biceps is normally positioned within the bicipital groove. The intracapsular segment is intact. Bones and cartilage: Humeral head is normal in morphology without fracture or focal osseous lesion. No glenohumeral chondromalacia. Mild degenerative capsular hypertrophy of the acromioclavicular joint. Soft tissues: No glenohumeral joint effusion. No MRI findings to suggest adhesive capsulitis. No fluid or inflammatory like signal within the subacromial/subdeltoid space to indicate bursitis. IMPRESSION: 1. Status post repair of the superior rotator cuff without recurrent full-thickness tear. One of the soft tissue anchors in the humeral head may have pulled free from its osseous anchoring site and be located within the repaired posterior supraspinatus. CT of the shoulder without contrast could be performed to further assess this potential abnormality. 2. Heterogeneous signal and thinning of the repaired supraspinatus is likely postoperative in nature and associated with prior debridement. 3. Long head of biceps remains intact. Dictated by: Dictated on workstation # [id number]
== END ==
LOC: RAD 08:05
PROVIDERS: ATTEND Nurse Practitioner Family
DX: M48.061 Spinal stenosis, lumbar region without neurogenic claudication (principal); M48.04 Spinal stenosis, thoracic region; M51.24 Other intervertebral disc displacement, thoracic region; M46.86 Other specified inflammatory spondylopathies, lumbar region; M46.84 Other specified inflammatory spondylopathies, thoracic region; M51.27 Other intervertebral disc displacement, lumbosacral region; M51.36 Other intervertebral disc degeneration, lumbar region; M25.512 Pain in left shoulder; Z98.890 Other specified postprocedural states
CPT/HCPCS: 72148; 73221

== ENCOUNTER 2018-06-07 13:20 | Emergency (ER) | payer MEDICAID ==
[~2018-06-07] VITALS: Ht 167.6 cm; Wt 70.3 kg
[2018-06-07] MEDS ORDERED: oxyCODONE/APAP 5/325MG (PERCOCET 5) TABLET PO STA (13:49)
--- NOTE | 2018-06-07 13:56 | ED Upper Extremity ---
General Chief Complaint: Upper Extremity Stated Complaint: FELL HURT RT ARM Nursing Triage Note: TO ROOM WAS PULLING ON LOAD WITH ROPE FELL BACK LANDING ON R ARM C/O PAIN IN ARM. Nursing Sepsis Screen: No Definite Risk Source: patient Exam Limitations: no limitations History of Present Illness Date Seen by Provider: Jun 07, 2018 Time Seen by Provider: 13:37 Initial Comments 57 yo female patient presents to the ED with c/o right forearm and wrist pain after falling onto an outstretched right hand. Patient states she was pulling on a tight rope over a trailer when the rope broke and she fell backwards. Denies hitting her head, loss of consciousness, or headache. Does complain of left hip pain. Denies back or neck pain. Denies headache. Does not take blood thinners or aspirin. Location Injury Occurred: outside of home Onset: this morning Pain/Injury Location: right forearm, right wrist; left other (left hip/buttock) Method of Injury: fell Modifying Factors: Improves With Immobilization; Worse With Movement Allergies and Home Medications Allergies Coded Allergies: hydrocodone (Verified Allergy, Unknown, 06/07/18) morphine (Unverified Allergy, Unknown, 03/23/17) Home Medications Albuterol Sulfate 1 Puff Puff, 2 PUFF IH Q4H PRN for WHEEZING 1 PUFF = 90 MCG Prescribed by: JAI HAND on 03/02/172048 Albuterol Sulfate 2.5 Mg/3 Ml Vial.neb, 2.5 MG IH Q4H Prescribed by: MAYKEL VERNON on 03/23/17 1154 Budesonide 1 Mg/2 Ml Ampul.neb, 1 MG IH BID Prescribed by: MAYKEL VERNON on 03/23/17 1154 Clonazepam 0.5 Mg Tablet, 0.5 MG PO BID PRN for prn, (Reported) Cyclobenzaprine HCl 10 Mg Tablet, 10 MG PO BID, (Reported) D-Methorphan Hb/Prometh HCl 118 Ml Syrup, 1-2 TSP PO Q4H Prescribed by: MAYKEL VERNON on 03/23/17 1154 Diclofenac/Misoprostol 1 Tab Tab, Unknown Dose PO UD, (Reported) Gabapentin 600 Mg Tablet, 600 MG PO TID PRN for prn, (Reported) Ondansetron HCl 4 Mg Tab, 4 MG PO Q6H PRN for NAUSEA/VOMITING-1ST LINE Prescribed by: JAI HAND on 03/02/172048 Oxycodone HCl/Acetaminophen 1 Each Tablet, 1 EACH PO DAILY PRN for prn, ( Reported) Patient Home Medication List Home Medication List Reviewed: Yes Constitutional: no symptoms reported EENTM: no symptoms reported Respiratory: no symptoms reported Cardiovascular: no symptoms reported Gastrointestinal: no symptoms reported Genitourinary: no symptoms reported Musculoskeletal: see HPI; No back pain; joint pain (right forearm, right wrist , left hip pain), joint swelling (right wrist); No neck pain Skin: No change in color, No lumps Psychiatric/Neurological: Denies Headache, Denies Numbness, Denies Paresthesia , Denies Seizure, Denies Tingling, Denies Weakness All Other Systems Reviewed Negative Unless Noted: Yes (Negative excepted noted.) Past Kaoddtj-Twbmyv-Xnfvqr Hx Past Med/Social Hx: Reviewed Nursing Past Med/Soc Hx Patient Social History Alcohol Use: Occasionally Uses Recreational Drug Use: Yes Smoking Status: Current Everyday Smoker Type Used: Cigarettes Recent Foreign Travel: No Contact w/Someone Who Travel: No Recent Infectious Disease Expo: No Recent Hopitalizations: No Immunizations Up To Date Tetanus Booster (TDap): Unknown PED Vaccines UTD: Yes Seasonal Allergies Seasonal Allergies: No Past Medical History Surgeries: Yes (BACK, ROTATOR CUFF) Appendectomy, Orthopedic Respiratory: No Cardiac: No Neurological: No Reproductive Disorders: No Genitourinary: No Gastrointestinal: No Musculoskeletal: Yes Arthritis, Chronic Back Pain Endocrine: No Cancer: No Psychosocial: No Integumentary: No Blood Disorders: No Family Medical History Reviewed Nursing Family Hx No Pertinent Family Hx Physical Exam Vital Signs Vital Signs - First Documented 06/07/18 13:33 Temp 98.0 Pulse 89 Resp 18 B/P (MAP) 117/73 (88) O2 Delivery Room Air Capillary Refill : Less Than 3 Seconds Height, Weight, BMI Height: 5'6.00" Weight: 155lbs. oz. 70.617543wj; BMI Method:Stated General Appearance: WD/WN, no apparent distress HEENT: PERRL/EOMI, pharynx normal, other (normocephalic, atraumatic) Neck: non-tender, full range of motion, supple, normal inspection Cardiovascular: normal peripheral pulses, regular rate, rhythm, no murmur Respiratory: chest non-tender, lungs clear, normal breath sounds, no respiratory distress, no accessory muscle use Back: normal inspection, no vertebral tenderness Shoulder: normal inspection, non-tender, no evidence of injury, normal ROM Elbow/Forearm: Right, bone tenderness (distal right forearm tenderness), ecchymosis (faint ecchymosis noted to the dorsal aspect of the right distal forearm), limited ROM, pain, soft tissue tenderness, swelling (distal right forearm swelling) Wrist: Yes bone tenderness (right wrist tenderness), Yes ecchymosis (faint ecchymosis noted to the dorsal aspect of the right wrist), Yes limited ROM, Yes pain, Yes soft tissue tenderness, Yes swelling Hand: normal ROM, Right, bone tenderness (proximal dorsal right hand), soft tissue tenderness, swelling (proximal dorsal right hand swelling) Neurologic/Tendon: normal sensation, normal motor functions, normal tendon functions, no evidence tendon injury Neurologic/Psychiatric: no motor/sensory deficits, alert, normal mood/affect, oriented x 3 Skin: normal color, warm/dry, ecchymosis (see forearm and wrist exam as described above) left hip shows ttp over the left buttock without deformity or swelling. Progress/Results/Core Measures Results/Orders My Orders Orders - KEYON KENNEDY Forearm, Right, 2 Views (06/07/18 13:49) Wrist, Right, 3 Views Or More (06/07/18 13:49) Pelvis (06/07/18 13:49) Oxycodone/Apap 5/325mg Tablet (Percocet (06/07/18 13:49) Vital Signs/I&O 06/07/18 13:33 Temp 98.0 Pulse 89 Resp 18 B/P (MAP) 117/73 (88) O2 Delivery Room Air Blood Pressure Mean: 88 Diagnostic Imaging Diagonstic Imaging: Xray Plain Films/CT/US/NM/MRI: forearm Comments INDICATION: Injury, wrist pain. AP and lateral views were obtained. There are no prior studies available for comparison. There is no fracture, dislocation or acute bony abnormality evident. The radiocarpal and elbow joints are fairly well -maintained. The soft tissues are unremarkable. IMPRESSION: There is no evidence for an acute bony abnormality. Dictated on workstation # [id number] Reviewed: Reviewed by Me (radiology report reviewed by me) Diagonstic Imaging: Xray Plain Films/CT/US/NM/MRI: other (right wrist) Comments FINDINGS: There is no fracture, dislocation or acute bony abnormality evident. The radiocarpal joint is fairly well maintained. There is mild degenerative disease of the triscaphe joint. The soft tissues are unremarkable. IMPRESSION: There is no evidence for an acute bony abnormality. Dictated on workstation # [id number] Reviewed: Reviewed by Me (radiology report reviewed by me) Diagonstic Imaging: Xray Plain Films/CT/US/NM/MRI: pelvis Comments Pelvis at 2:30. INDICATION: Injury. Single AP view of the pelvis is obtained. There is no fracture, dislocation or acute bony abnormality evident. There is mild degenerative disease involving both hip joints. The degenerative changes are similar to the prior exam of 02/05/2018. The rounded lucency overlying the left femoral head seen on the prior study is again evident and no different. This is of uncertain etiology but most likely a benign process. There is mild symmetrical sclerosis of the sacroiliac joints. There does appear to be fairly severe degenerative disc and bony disease on the right at L4-L5. This finding is no different than on the prior exam, however. Soft tissues are unremarkable. IMPRESSION: There is no evidence for an acute bony abnormality. Dictated on workstation # [id number] Reviewed: Reviewed by Me (radiology report reviewed by me) Departure Communication (Admissions) Diagnostic findings discussed with the patient. Patient placed in a right thumb spica brace and arm sling. Plan for discharge to home. Impression Primary Impression: Sprain of wrist, right Qualified Codes: S63.501A - Unspecified sprain of right wrist, initial encounter Additional Impression: Contusion of buttock Qualified Codes: S30.0XXA - Contusion of lower back and pelvis, initial encounter Disposition: 01 HOME, SELF-CARE Condition: Improved Departure-Patient Inst. Decision time for Depature: 14:54 Referrals: QUITA JOLLY MD (PCP/Family) Primary Care Physician JAE WALTERS MD Patient Instructions: How to Use a Shoulder Sling, Common Wrist Injuries (DC) Add. Discharge Instructions: All discharge instructions reviewed with patient and/or family. Voiced understanding. Tylenol extra strength vtoc-jus-eozfhkz as directed for pain. Ibuprofen 600 mg by mouth every 6-8 hours as needed for pain. Elevate the right arm on pillows. Ice pack for 20 minute intervals as needed for pain. Wrist brace and sling as instructed. Left hand activities only x5-7 days, then increase activity as tolerated. Follow-up with your primary care provider for recheck as an outpatient if no improvement in symptoms in 7-10 days. At that time your provider may order a repeat x-ray or MRI. Return to the emergency department for worsened symptoms or any other concerns. KEYON KENNEDY Jun 07, 2018 13:56
--- NOTE | 2018-06-07 14:49 | Diagnostic Imaging Report ---
Right forearm at 01/12. INDICATION: Injury, wrist pain. AP and lateral views were obtained. There are no prior studies available for comparison. There is no fracture, dislocation or acute bony abnormality evident. The radiocarpal and elbow joints are fairly well-maintained. The soft tissues are unremarkable. IMPRESSION: There is no evidence for an acute bony abnormality. Dictated by: Dictated on workstation # [id number]
--- NOTE | 2018-06-07 15:04 | Diagnostic Imaging Report ---
INDICATION: Injury, wrist pain. EXAMINATION: Right wrist at 2:27 p.m. Three views were obtained. FINDINGS: There is no fracture, dislocation or acute bony abnormality evident. The radiocarpal joint is fairly well maintained. There is mild degenerative disease of the triscaphe joint. The soft tissues are unremarkable. IMPRESSION: There is no evidence for an acute bony abnormality. Dictated by: Dictated on workstation # [id number]
--- NOTE | 2018-06-07 15:06 | Diagnostic Imaging Report ---
Pelvis at 2:30. INDICATION: Injury. Single AP view of the pelvis is obtained. There is no fracture, dislocation or acute bony abnormality evident. There is mild degenerative disease involving both hip joints. The degenerative changes are similar to the prior exam of 02/05/2018. The rounded lucency overlying the left femoral head seen on the prior study is again evident and no different. This is of uncertain etiology but most likely a benign process. There is mild symmetrical sclerosis of the sacroiliac joints. There does appear to be fairly severe degenerative disc and bony disease on the right at L4-L5. This finding is no different than on the prior exam, however. The soft tissues are unremarkable. IMPRESSION: There is no evidence for an acute bony abnormality. Dictated by: Dictated on workstation # [id number]
[2018-06-07 15:19] VITALS: BP 117/73
== END 2018-06-07 15:19 | disposition home or self-care (01) ==
LOC: EDUNIT# 13:20 → ER 13:22
DX: S63.501A Unspecified sprain of right wrist, initial encounter (principal); S30.0XXA Contusion of lower back and pelvis, initial encounter; F17.210 Nicotine dependence, cigarettes, uncomplicated; Z90.89 Acquired absence of other organs; Z88.5 Allergy status to narcotic agent; Z79.51 Long term (current) use of inhaled steroids; W18.30XA Fall on same level, unspecified, initial encounter
CPT/HCPCS: 72170; 73090; 73110

== ENCOUNTER 2020-09-21 05:28 | Outpatient (RCR) | payer MEDICAID ==
[~2020-09-21] VITALS: Ht 167 cm; Wt 64.0 kg
[~2020-09-21 05:28] MED LIST changes: -BENZ-13 PO; +BENZ100C18 PO; -CLON0.5T13 PO; +CLON0.5T4 PO; -D-ME118S7 PO; +DULO60CA59 PO; -GABA600T2 PO; +GBPN600T PO; -OXYC-197 PO; +OXYC1TAB87 PO; +PANT20TA18 PO; +PROM118S5 PO; +TRZ50T PO
== END 2020-09-21 09:44 | disposition home or self-care (01) ==
LOC: PREOP 05:28
PROVIDERS: ATTEND Specialist
DX: Z01.812 Encounter for preprocedural laboratory examination (principal); Z20.828 Contact with and (suspected) exposure to other viral communicable diseases
CPT/HCPCS: 87635

== ENCOUNTER 2020-09-22 07:33 | Day surgery (SDC) | payer MEDICAID ==
[~2020-09-22] VITALS: Ht 167 cm; Wt 64.0 kg
[2020-09-22 07:40] VITALS: BP 94/68
[2020-09-22] MEDS ORDERED: POVIDONE (BETADINE) OPHTH SOLN 5% 30 ML OP ONE (07:45)
[2020-09-22] MEDS ORDERED: TIMOLOL MALEATE 0.5% 5 ML (TIMOPTIC) BTL OU PRN (07:45)
[2020-09-22] MEDS ORDERED: LIDOCAINE PF 1% 2 ML VIAL IR PRN (07:45)
[2020-09-22] MEDS ORDERED: MOXIFLOXACIN OPHTH SOLN 5 MG/ML 0.3 ML SYRINGE OP ONE (07:45)
[2020-09-22] MEDS: TETRACAINE 0.5% OPHTH SOLN 4 ML BTL (SINGLE DOSE ONLY) OU PRN ×4 (07:51→08:21)
[2020-09-22] MEDS: PHENYLEPHRINE 10% OPHTH (NEO-SYN) 5 ML BTL OU SCH ×3 (08:04→08:21)
[2020-09-22] MEDS: TROPICAMIDE 1% OPH SOLN (MYDRIACYL) 15 ML BTL OP SCH ×3 (08:04→08:21)
--- NOTE | 2020-09-22 08:38 | Ophthalmologist Pre-Op Note ---
Pre-Operative Progress Note H&P Reviewed The H&P was reviewed, patient examined and no changes noted. Date H&P Reviewed: Sep 22, 2020 Time H&P Reviewed: 08:37 Pre-Op Dx Cataract, Left Eye YOSELIN HERNÁNDEZ MD Sep 22, 2020 08:37
[2020-09-22] MEDS ORDERED: MIDAZOLAM 2 MG/2 ML (VERSED) VIAL ONE (08:47)
[2020-09-22] MEDS ORDERED: acetaZOLAMIDE ER 500 MG CAP (DIAMOX SEQUELS) PO ONE (09:00)
--- NOTE | 2020-09-22 09:04 | Ophthalmology Operative Report ---
Cataract removal/placement IOL PREOPERATIVE DIAGNOSIS: 1. Mature Cataract Left Eye 2. Stain the anterior capsule with Vision Blue. POSTOPERATIVE DIAGNOSIS: 1. Mature Cataract Left Eye 2. Stain the anterior capsule with Vision Blue. PROCEDURE: 1. Cataract removal and placement of posterior chamber implant, left eye. 2. Stain the anterior capsule with Vision Blue. SURGEON: Taiwo Hernández ANESTHESIA: Topical with sedation COMPLICATIONS: None ESTIMATED BLOOD LOSS: Minimal DESCRIPTION OF PROCEDURE: After proper informed consent was obtained, the patient, 60 female ,was taken to the Operating Room and the left eye was anesthetized with tetracaine. The left eye was then prepped and draped in the usual manner. A wire lid speculum was placed. A paracentesis was made at the left hand position. Preservative free lidocaine was injected into anterior chamber followed by viscoelastic. A clear corneal incision was made in the temporal position. A capsulorrhexis was performed and the central nuclear and cortical material were removed. Vision blue was used to visualize capsule. The posterior capsule was polished and Molina AUOOTO 21.0 IOL was placed into the capsular bag. The residual v iscoelastic was aspirated and balanced saline solution was injected into the anterior chamber. Moxifloxacin was injected into the anterior chamber. The wound was checked and found to be water tight. The patient tolerated the procedure well without complications. TAIWO HERNÁNDEZ MD Sep 22, 2020 09:04
[2020-09-22 09:14] VITALS: BP 125/67
--- NOTE | 2020-09-22 12:20 | Anesthesia-General Post-Op ---
MAC Patient Condition Mental Status/LOC: Same as Preop Cardiovascular: Satisfactory Nausea/Vomiting: Absent Respiratory: Satisfactory Pain: Controlled Complications: Absent Post Op Complications Complications None Follow Up Care/Instructions Patient Instructions None needed. Anesthesiology Discharge Order Discharge Order Patient is doing well, no complaints, stable vital signs, no apparent adverse anesthesia problems. No complications reported per nursing. ILENE BAJWA CRNA Sep 22, 2020 12:20
== END 2020-09-22 09:14 | disposition home or self-care (01) ==
LOC: SDC 07:33
PROVIDERS: ATTEND Specialist
DX: H25.12 Age-related nuclear cataract, left eye (principal); F41.9 Anxiety disorder, unspecified; F32.9 Major depressive disorder, single episode, unspecified; M06.9 Rheumatoid arthritis, unspecified; G47.00 Insomnia, unspecified; F17.210 Nicotine dependence, cigarettes, uncomplicated; Z79.899 Other long term (current) drug therapy; Z88.5 Allergy status to narcotic agent
CPT/HCPCS: 66984; V2632

== ENCOUNTER 2020-09-26 05:37 | Outpatient (RCR) | payer MEDICAID ==
--- NOTE | 2020-09-27 17:38 | NUR ---
Notified of postive COVID test.
== END 2020-09-26 11:03 | disposition home or self-care (01) ==
LOC: PREOP 05:37
PROVIDERS: ATTEND Specialist
DX: Z01.812 Encounter for preprocedural laboratory examination (principal); U07.1 COVID-19
CPT/HCPCS: 87635

== ENCOUNTER 2020-10-28 13:29 | Emergency (ER) | payer MEDICAID ==
[~2020-10-28] VITALS: Ht 167.7 cm; Wt 64.0 kg
[2020-10-28] MEDS ORDERED: ASPIRIN 81 MG CHEW (CHILDREN'S ASA) PO ONE (13:45)
[2020-10-28] MEDS ORDERED: LORazepam INJ 2 MG/ML (ATIVAN) VIAL IVP ONE (13:45)
[2020-10-28] MEDS ORDERED: KETOROLAC 30 MG/ML VIAL IVP ONE (13:45)
--- NOTE | 2020-10-28 13:48 | ED Chest Pain ---
General Chief Complaint: Chest Pain Stated Complaint: CP Nursing Triage Note: PT TO ROOM 06 VIA W/C WITH C/O CHEST PAIN STARTING AT 1900 YESTERDAY. PT WAS SEEN AT [facility] TODAY AND SENT TO ED. Nursing Sepsis Screen: No Definite Risk Source: patient Exam Limitations: no limitations History of Present Illness Date Seen by Provider: Oct 28, 2020 Time Seen by Provider: 13:46 Initial Comments To ER with reports of left lower chest pain sharp in nature since 7 PM last night. She does not have fevers chills or shortness of breath. She does not have a cough. The pain is sharp in nature. Its been constant since last night. She has no history of this nor does she have a history of coronary stenting. She called EMS last night and was checked out but then ultimately refused transport. She was formerly on Klonopin for anxiety but states that [facility] stopped these 3 days ago. Timing/Duration: changing over time Severity/Quality: moderate Location: central Radiation: no radiation Activities at Onset: none ASA po MRI TECHNOLOGIST: No NTG SL MRI TECHNOLOGIST: No Associated Symptoms: No nausea/vomiting, No shortness of breath Allergies and Home Medications Allergies Coded Allergies: hydrocodone (Verified Allergy, Mild, ITCHING, 09/19/20) morphine (Unverified Allergy, Mild, N/V, 09/19/20) Home Medications Duloxetine HCl 60 Mg Capsule.dr, 60 MG PO DAILY, (Reported) Gabapentin 600 Mg Tablet, 600 MG PO TID PRN for prn, (Reported) Pantoprazole Sodium 20 Mg Tablet.dr, 20 MG PO DAILY, (Reported) Trazodone HCl 50 Mg Tablet, 50 MG PO PRN, (Reported) Patient Home Medication List Home Medication List Reviewed: Yes Review of Systems Review of Systems Constitutional: see HPI; No chills, No fever EENTM: No Symptoms Reported Respiratory: No Symptoms Reported Cardiovascular: See HPI, Chest Pain Gastrointestinal: See HPI Genitourinary: No Symptoms Reported Musculoskeletal: no symptoms reported Skin: no symptoms reported Psychiatric/Neurological: No Symptoms Reported Endocrine: No Symptoms Reported Hematologic/Lymphatic: No Symptoms Reported Past Rdmrilu-Irsdyx-Zzesln Hx Patient Social History Type Used: Cigarettes Recent Foreign Travel: No Contact w/Someone Who Travel: No Recent Infectious Disease Expo: No Recent Hopitalizations: No Immunizations Up To Date Tetanus Booster (TDap): Unknown PED Vaccines UTD: Yes Seasonal Allergies Seasonal Allergies: No Past Medical History Surgeries: Yes (BACK, ROTATOR CUFF) Appendectomy, Orthopedic Respiratory: No Cardiac: No Neurological: No Reproductive Disorders: No Genitourinary: No Gastrointestinal: No Musculoskeletal: Yes Arthritis, Chronic Back Pain Endocrine: No Cancer: No Psychosocial: No Integumentary: No Blood Disorders: No Family Medical History No Pertinent Family Hx Physical Exam Vital Signs Vital Signs - First Documented 10/28/20 13:38 Temp 36.3 Pulse 70 Resp 19 B/P (MAP) 128/91 (103) O2 Delivery Room Air Capillary Refill : Less Than 3 Seconds Height, Weight, BMI Height: 5'6.00" Weight: 155lbs. oz. [id number]; 22.00 BMI Method:Stated General Appearance: No Apparent Distress, WD/WN, Anxious (Tachypneic, anxious appearing, shaky.), Other (SpO2 100% on room air. ) Neck: Full Range of Motion, Normal Inspection Respiratory: No Accessory Muscle Use, No Respiratory Distress Cardiovascular: Regular Rate, Rhythm, Normal Peripheral Pulses Gastrointestinal: Normal Bowel Sounds, Non Tender, Soft Extremity: Normal Capillary Refill, Normal Inspection Neurologic/Psychiatric: Alert, Oriented x3 Skin: Normal Color, Warm/Dry Progress/Results/Core Measures Results/Orders Lab Results Laboratory Tests Test 10/28/20 13:37 Range/Units White Blood Count 13.8 H 4.3-11.0 10^3/uL Red Blood Count 4.88 3.80-5.11 10^6/uL Hemoglobin 15.2 11.5-16.0 g/dL Hematocrit 46 35-52 % Mean Corpuscular Volume 93 80-99 fL Mean Corpuscular Hemoglobin 31 25-34 pg Mean Corpuscular Hemoglobin Concent 33 32-36 g/dL Red Cell Distribution Width 13.5 10.0-14.5 % Platelet Count 276 130-400 10^3/uL Mean Platelet Volume 10.5 9.0-12.2 fL Immature Granulocyte % (Auto) 0 % Neutrophils (%) (Auto) 48 42-75 % Lymphocytes (%) (Auto) 42 12-44 % Monocytes (%) (Auto) 8 0-12 % Eosinophils (%) (Auto) 1 0-10 % Basophils (%) (Auto) 1 0-10 % Neutrophils # (Auto) 6.6 1.8-7.8 10^3/uL Lymphocytes # (Auto) 5.8 H 1.0-4.0 10^3/uL Monocytes # (Auto) 1.1 H 0.0-1.0 10^3/uL Eosinophils # (Auto) 0.2 0.0-0.3 10^3/uL Basophils # (Auto) 0.1 0.0-0.1 10^3/uL Immature Granulocyte # (Auto) 0.0 0.0-0.1 10^3/uL Prothrombin Time 12.8 12.2-14.7 SEC INR Comment 0.9 0.8-1.4 Activated Partial Thromboplast Time 29 24-35 SEC Sodium Level 135 135-145 MMOL/L Potassium Level 4.0 3.6-5.0 MMOL/L Chloride Level 106 98-107 MMOL/L Carbon Dioxide Level 18 L 21-32 MMOL/L Anion Gap 11 5-14 MMOL/L Blood Urea Nitrogen 12 7-18 MG/DL Creatinine 0.84 0.60-1.30 MG/DL Estimat Glomerular Filtration Rate > 60 BUN/Creatinine Ratio 14 Glucose Level 107 H 70-105 MG/DL Calcium Level 9.4 8.5-10.1 MG/DL Corrected Calcium 9.3 8.5-10.1 MG/DL Magnesium Level 1.8 1.6-2.4 MG/DL Total Bilirubin 0.4 0.1-1.0 MG/DL Aspartate Amino Transf (AST/SGOT) 19 5-34 U/L Alanine Aminotransferase (ALT/SGPT) 12 0-55 U/L Alkaline Phosphatase 128 40-136 U/L Myoglobin 41.5 10.0-92.0 NG/ML Troponin I < 0.028 <0.028 NG/ML B-Type Natriuretic Peptide 20.7 <100.0 PG/ML Total Protein 7.7 6.4-8.2 GM/DL Albumin 4.1 3.2-4.5 GM/DL Lipase 28 8-78 U/L My Orders Orders - CARLITOS FOSTER WAREHOUSE TECHNICIAN Cbc With Automated Diff (10/28/20 13:43) Magnesium (10/28/20 13:43) Chest 1 View, Ap/Pa Only (10/28/20 13:43) Ekg Tracing (10/28/20 13:43) Comprehensive Metabolic Panel (10/28/20 13:43) Myoglobin Serum (10/28/20 13:43) Protime With Inr (10/28/20 13:43) Partial Thromboplastin Time (10/28/20 13:43) O2 (10/28/20 13:43) Monitor-Rhythm Ecg Trace Only (10/28/20 13:43) Lipid Panel (10/29/20 06:00) Ed Iv/Invasive Line Start (10/28/20 13:43) BNP (10/28/20 13:43) Aspirin Chewable Tablet (Baby Aspirin Ch (10/28/20 13:45) Lorazepam Injection (Ativan Injection) (10/28/20 13:45) Ketorolac Injection (Toradol Injection) (10/28/20 13:45) Troponin I (10/28/20 13:43) Antacid Suspension (Mylanta Suspension (10/28/20 14:30) Lidocaine 2% Viscous 15 Ml (Xylocaine Vi (10/28/20 14:30) Lipase (10/28/20 14:30) Ct Chest Wo (10/28/20 15:00) Medications Given in ED Current Medications Medications Dose Ordered Sig/Rosi Route Start Time Stop Time Status Last Admin Dose Admin Al Hydrox/Mg Hydrox/Simethicone 30 ml ONCE ONCE PO 10/28/20 14:30 10/28/20 14:31 DC 10/28/20 14:39 30 ML Aspirin 324 mg ONCE ONCE PO 10/28/20 13:45 10/28/20 13:46 DC 10/28/20 14:06 324 MG Ketorolac Tromethamine 15 mg ONCE ONCE IVP 10/28/20 13:45 10/28/20 13:46 DC 10/28/20 14:06 15 MG Lidocaine HCl 10 ml ONCE ONCE PO 10/28/20 14:30 10/28/20 14:31 DC 10/28/20 14:39 10 ML Lorazepam 1 mg ONCE ONCE IVP 10/28/20 13:45 10/28/20 13:46 DC 10/28/20 14:06 1 MG Vital Signs/I&O 10/28/20 10/28/20 13:38 13:42 Temp 36.3 Pulse 70 Resp 19 B/P (MAP) 128/91 (103) O2 Delivery Room Air Room Air Blood Pressure Mean: 103 Departure Communication (Admissions) Family Conversation NAME: MELANIA MURILLO [facility] REC#: [id number] PT STATUS: REG ER : 1960 PHYSICIAN: CARLITOS FOSTER APRN ADMIT DATE: 10/28/20/ER Draft Date of Exam:10/28/20 CT CHEST WO PROCEDURE: CT chest without contrast. TECHNIQUE: Multiple contiguous axial images were obtained through the chest without the use of intravenous contrast. Auto Exposure Controls were utilized during the CT exam to meet ALARA standards for radiation dose reduction. INDICATION: Chest pain, epigastric pain starting one day ago. CORRELATION: Chest radiograph 10/28/2020. FINDINGS: There is a very small area of extraluminal gas located at the level of the thoracic inlet posterior to the right aspect of the trachea and to the right aspect of the esophagus. No definitive disruption of the trachea and/or esophagus is noted. Otherwise, there is no suggestion for abnormal pneumomediastinum. Heart size is within normal limits with scattered mild coronary artery calcification. There is prominence of the ascending aorta at 3.7 cm. No suggestion for pathologically enlarged mediastinal lymph nodes on noncontrast imaging. Slight asymmetric emphysematous change about the lung apices. No consolidating infiltrate. No significant pleural effusion. The visualized portions of the upper abdomen are unremarkable. Mildly advanced degenerative changes throughout the thoracic spine with slightly accentuated thoracic kyphosis. IMPRESSION: 1. Very small area of extraluminal gas at the thoracic inlet adjacent to the trachea and proximal esophagus. No definitive disruption of the subjacent structures, additional inflammatory changes or findings to suggest additional evidence for pneumomediastinum. This may very well reflect small diverticulum or laryngocele. 2. Otherwise, relatively unremarkable noncontrast CT examination of the chest. Dictated on workstation # [id number] Dict: 10/28/20 1600 Trans: 10/28/20 1637 [facility] [phone] Interpreted by: RILEY JARVIS DO Electronically signed by: I discussed the findings of extraluminal gas with Dr. Pereyra. States Augmentin antibiotics would be optional, clear liquids for 24 hours. Impression Primary Impression: Anxiety Additional Impression: Chest pain Disposition: 01 HOME, SELF-CARE Condition: Stable Departure-Patient Inst. Decision time for Depature: 14:45 Referrals: [facility] [place] Primary Care Physician JOAN LLAMAS MD Patient Instructions: Chest Pain Add. Discharge Instructions: 1. Return to Er for any concerns. Follow up with your doctor next week. There is a small area of gas that appears to be outside of your trachea, this could represent a a pocket of the esophagus called a diverticulum or this could represent a small tear in the esophagus but your location of pain and other symptoms and labs do not support that. We will play it safe and put you on some antibiotics for 3 days and have you use only clear liquids for the next [address] LLAMAS on Friday to make an appointment to be seen for follow-up. Return to ER for any worsening. All discharge instructions reviewed with patient and/or family. Voiced understanding. Scripts Amoxicillin/Potassium Clav (Augmentin 875-125 Tablet) 1 Each Tablet 1 EACH PO BID, #10 TAB 0 Refills Prov: CARLITOS FOSTER APRN 10/28/20 CARLITOS FOSTER APRN Oct 28, 2020 13:48
[2020-10-28 13:50] LABS: BASOPHILS # (AUTO) 0.1 10^3/uL (0.0-0.1); BASOPHILS % (AUTO) 1 % (0-10); EOSINOPHILS # (AUTO) 0.2 10^3/uL (0.0-0.3); EOSINOPHILS % (AUTO) 1 % (0-10); HEMATOCRIT 46 % (35-52); HEMOGLOBIN 15.2 g/dL (11.5-16.0); LYMPHOCYTES # (AUTO) 5.8 10^3/uL (1.0-4.0); LYMPHOCYTES % (AUTO) 42 % (12-44); MEAN CORPUSCULAR HEMOGLOBIN 31 pg (25-34); MEAN CORPUSCULAR HGB CONC 33 g/dL (32-36); MEAN CORPUSCULAR VOLUME 93 fL (80-99); MEAN PLATELET VOLUME 10.5 fL (9.0-12.2); MONOCYTES # (AUTO) 1.1 10^3/uL (0.0-1.0); MONOCYTES % (AUTO) 8 % (0-12); NEUTROPHILS # (AUTO) 6.6 10^3/uL (1.8-7.8); NEUTROPHILS % (AUTO) 48 % (42-75); PLATELET COUNT 276 10^3/uL (130-400); WHITE BLOOD COUNT 13.8 10^3/uL (4.3-11.0)
[2020-10-28 13:57] LABS: ALBUMIN 4.1 GM/DL (3.2-4.5); CHLORIDE 106 MMOL/L (98-107); SODIUM 135 MMOL/L (135-145)
[2020-10-28 13:59] LABS: CALCIUM 9.4 MG/DL (8.5-10.1)
[2020-10-28 14:00] LABS: GLUCOSE 107 MG/DL (70-105); TOTAL PROTEIN 7.7 GM/DL (6.4-8.2)
[2020-10-28 14:01] LABS: CARBON DIOXIDE 18 MMOL/L (21-32)
[2020-10-28 14:02] LABS: BILIRUBIN,TOTAL 0.4 MG/DL (0.1-1.0)
[2020-10-28 14:03] LABS: ALKALINE PHOSPHATASE 128 U/L (40-136); CREATININE SERUM 0.84 MG/DL (0.60-1.30); GFR ESTIMATED > 60; INR 0.9 (0.8-1.4); PROTHROMBIN TIME PATIENT 12.8 SEC (12.2-14.7)
[2020-10-28 14:04] LABS: BUN/CREATININE RATIO 14
[2020-10-28 14:06] LABS: ALANINE AMINOTRANSFERASE 12 U/L (0-55); MAGNESIUM 1.8 MG/DL (1.6-2.4)
--- NOTE | 2020-10-28 14:27 | Diagnostic Imaging Report ---
INDICATION: Chest pain. TECHNIQUE: Single view chest 2:09 PM. CORRELATION STUDY: 03/23/2017 FINDINGS: The heart size, mediastinal configuration and pulmonary vascularity are within normal limits. The lungs are clear with no consolidating infiltrate. There is no significant effusion or pneumothorax. Degenerative osteophytes of the thoracic spine. IMPRESSION: 1. Negative for acute abnormality of the chest. Dictated by: Dictated on workstation # [id number]
[2020-10-28] MEDS ORDERED: ANTACID SUSP 30 ML UDC (MYLANTA) PO ONE (14:30)
[2020-10-28] MEDS ORDERED: LIDOCAINE 2% VISCOUS 15 ML UDC PO ONE (14:30)
--- NOTE | 2020-10-28 16:39 | Diagnostic Imaging Report ---
PROCEDURE: CT chest without contrast. TECHNIQUE: Multiple contiguous axial images were obtained through the chest without the use of intravenous contrast. Auto Exposure Controls were utilized during the CT exam to meet ALARA standards for radiation dose reduction. INDICATION: Chest pain, epigastric pain starting one day ago. CORRELATION: Chest radiograph 10/28/2020. FINDINGS: There is a very small area of extraluminal gas located at the level of the thoracic inlet posterior to the right aspect of the trachea and to the right aspect of the esophagus. No definitive disruption of the trachea and/or esophagus is noted. Otherwise, there is no suggestion for abnormal pneumomediastinum. Heart size is within normal limits with scattered mild coronary artery calcification. There is prominence of the ascending aorta at 3.7 cm. No suggestion for pathologically enlarged mediastinal lymph nodes on noncontrast imaging. Slight asymmetric emphysematous change about the lung apices. No consolidating infiltrate. No significant pleural effusion. The visualized portions of the upper abdomen are unremarkable. Mildly advanced degenerative changes throughout the thoracic spine with slightly accentuated thoracic kyphosis. IMPRESSION: 1. Very small area of extraluminal gas at the thoracic inlet adjacent to the trachea and proximal esophagus. No definitive disruption of the subjacent structures, additional inflammatory changes or findings to suggest additional evidence for pneumomediastinum. This may very well reflect small diverticulum or laryngocele. 2. Otherwise, relatively unremarkable noncontrast CT examination of the chest. Dictated by: Dictated on workstation # [id number]
[2020-10-28 16:43] VITALS: BP 119/81
[2020-10-28] MEDS ORDERED: AMOX-358 PO (16:44)
== END 2020-10-28 16:43 | disposition home or self-care (01) ==
LOC: EDUNIT# 13:29 → ER 13:31
DX: F41.9 Anxiety disorder, unspecified (principal); R07.9 Chest pain, unspecified; Z88.5 Allergy status to narcotic agent
CPT/HCPCS: 36415; 71045; 71250; 80053; 83690; 83735; 83874; 83880; 84484; 85025; 85610; 85730; 93005; 93041

== ENCOUNTER → 2020-12-05 | Outpatient (CLI) | payer MEDICAID ==
[~2020-12-05] MED LIST changes: +AMOX-358 PO
== END ==
LOC: CARD 13:00
PROVIDERS: ATTEND Internal Medicine Cardiovascular Disease
DX: I07.1 Rheumatic tricuspid insufficiency (principal)
CPT/HCPCS: 93306

== ENCOUNTER → 2020-12-11 | Outpatient (CLI) | payer MEDICAID ==
[~2020-12-11] MED LIST changes: +REGADENOSON 0.4 MG/5 ML SYR (LEXISCAN) IV ONE
[2020-12-11] MEDS: CATHETER FLUSH 10 ML SYR IV PRN ×2 (08:16→09:28)
[2020-12-11 09:22] VITALS: BP 154/91
--- NOTE | 2020-12-11 10:37 | Cardiology Stress Test Report ---
Stress Test Report Date of Procedure/Referring: Date of Procedure: Dec 11, 2020 PCP Tj Frederick MD Admitting Physician Center/[facility] Indications: Palpitation Baseline Heart Rate: 62 Baseline Blood Pressure: Blood Pressure Systolic: 154 Blood Pressure Diastolic: 91 Baseline Vitals Vital Signs Date Time Temp Pulse Resp B/P (MAP) Pulse Ox O2 Delivery O2 Flow Rate FiO2 12/11/20 09:22 62 154/91 (112) 98 Room Air Baseline EKG: Baseline EKG: NSR Summary After explaining the procedure to the patient, she signed a consent and then brought to the stress nuclear laboratory. Patient received 0.4 mg Lexiscan for stress test, ECG, heart rate and blood pressure were monitored continuously. Resting and stress dose of radio tracer were injected, imaging was acquired and reviewed in short axis, horizontal long axis and vertical long axis views. TID: 1.05 SSS: 1 SDS: 1 EF: 68 1. Patient had some chest pain after Lexiscan injection, feeling better now 2. Minimal nondiagnostic EKG changes with Lexiscan injection resolved after recovery 3. Breast attenuation with no significant ischemia or infarction on SPECT 4. Normal left ventricular size, EF 68 percent TJ FREDERICK MD Dec 11, 2020 10:37
== END ==
LOC: CARD 07:53
PROVIDERS: ATTEND Internal Medicine Cardiovascular Disease
DX: R00.2 Palpitations (principal)
CPT/HCPCS: 78452; 93017; A9502

== ENCOUNTER → 2020-12-20 | Outpatient (CLI) | payer MEDICAID ==
[~2020-12-20] MED LIST changes: +CATHETER FLUSH 10 ML SYR IV PRN; +HOLD METFORMIN - RECEIVED CONTRAST 20 ML VIAL IV SCH; +IOHEXOL 350 MG/ML 100 ML (OMNIPAQUE 350) VIAL IV ONE; +NS 100 ML (IVPB) BAG IV ONE; -REGADENOSON 0.4 MG/5 ML SYR (LEXISCAN) IV ONE
[2020-12-20 08:56] LABS: BUN/CREATININE RATIO 17; CREATININE SERUM 0.77 MG/DL (0.60-1.30); GFR ESTIMATED > 60
--- NOTE | 2020-12-20 09:46 | Diagnostic Imaging Report ---
PROCEDURE: CT angiography of the chest with contrast. TECHNIQUE: Multiple contiguous axial images were obtained through the chest after uneventful bolus administration of intravenous contrast. 3D reconstructed CTA MIP acquisitions were also performed. Auto Exposure Controls were utilized during the CT exam to meet ALARA standards for radiation dose reduction. INDICATION: Chest pain and family history of aortic aneurysm. Correlation is made with noncontrast CT chest from 10/28/2020. The ascending thoracic aorta measures 3.6 cm in AP diameter. Aortic arch is normal caliber. The descending thoracic aorta appears to be normal caliber. No dissection is identified. No axillary lymphadenopathy is identified. No definite mediastinal or hilar lymphadenopathy is detected. There is no pericardial or pleural fluid. Lungs are clear of acute infiltrates. No mass is detected. There is no nodule. Upper abdomen is unremarkable. IMPRESSION: Unremarkable CT angiogram of the chest. There is no evidence of thoracic aortic aneurysm or aortic dissection. Dictated by: Dictated on workstation # [id number]
== END ==
LOC: RAD 09:15
PROVIDERS: ATTEND Internal Medicine Cardiovascular Disease
DX: R07.9 Chest pain, unspecified (principal); Z82.49 Family history of ischemic heart disease and other diseases of the circulatory system
CPT/HCPCS: 36415; 71275; 82565; 84520

== ENCOUNTER → 2021-06-26 | Outpatient (CLI) | payer MEDICAID ==
[~2021-06-26] MED LIST changes: -CATHETER FLUSH 10 ML SYR IV PRN; -HOLD METFORMIN - RECEIVED CONTRAST 20 ML VIAL IV SCH; -IOHEXOL 350 MG/ML 100 ML (OMNIPAQUE 350) VIAL IV ONE; -NS 100 ML (IVPB) BAG IV ONE; -SULF1TAB35 PO; +SULF1TAB38 PO
== END ==
LOC: CARD 10:00
PROVIDERS: ATTEND Physician Assistant
DX: I49.9 Cardiac arrhythmia, unspecified (principal)
CPT/HCPCS: 93225; 93226

== ENCOUNTER 2021-08-24 05:31 | Outpatient (RCR) | payer MEDICAID ==
[~2021-08-24] VITALS: Ht 167.6 cm; Wt 64.0 kg
[~2021-08-24 05:31] MED LIST changes: +ACYC400T21 PO; +ATOR10TA66 PO
== END 2021-08-27 08:48 | disposition home or self-care (01) ==
LOC: PREOP 05:31
PROVIDERS: ATTEND Surgery
DX: Z01.812 Encounter for preprocedural laboratory examination (principal); K21.9 Gastro-esophageal reflux disease without esophagitis; Z20.822 Contact with and (suspected) exposure to COVID-19
CPT/HCPCS: 87635

== ENCOUNTER 2021-08-28 07:58 | Day surgery (SDC) | payer MEDICAID ==
[~2021-08-28] VITALS: Ht 167.6 cm; Wt 64.0 kg
[2021-08-28] MEDS ORDERED: LACTATED RINGERS 1,000 ML IV ONE (08:06)
[2021-08-28] MEDS ORDERED: LACTATED RINGERS 1,000 ML IV STA (08:07)
[2021-08-28] MEDS ORDERED: HURRICAINE EXT TUBE (BENZOCAINE) XX PRN (08:15)
[2021-08-28 09:00] VITALS: BP 102/77
[2021-08-28] MEDS ORDERED: MIDAZOLAM 2 MG/2 ML (VERSED) VIAL ONE ×2 (09:34→09:45)
[2021-08-28] MEDS ORDERED: proPOfol 200 MG/20 ML (DIPRIVAN) VIAL IV ONE ×2 (09:34→09:45)
--- NOTE | 2021-08-28 10:22 | Progress Note-Post Operative ---
Post-Operative Progess Note Surgeon (s)/Installer (s) Surgeon BRADY SAMAYOA DO Installer: na Pre-Operative Diagnosis gerd, change in bowel habits Post-Operative Diagnosis hiatal hernia, colon polyps Procedure & Operative Findings Date of Procedure 08/28/21 Procedure Performed/Findings egd c biopsies, colonoscopy c cold biopsy polypectomy Anesthesia Type per [facility] Estimated Blood Loss Estimated blood loss (mL): na Specimens/Packing Specimens Removed antrum, ge, sigmoid polyps BRADY SAMAYOA DO Aug 28, 2021 10:22
[2021-08-28 10:23] VITALS: BP 93/53
[2021-08-28 10:28] VITALS: BP 96/56
--- NOTE | 2021-08-28 10:28 | Discharge Inst-Simple/Standard ---
Discharge Inst-Standard Patient Instructions/Follow Up Plan of Care/Instructions/FU: 2 weeks Candida Activity as Tolerated: Yes Discharge Diet: Regular Diet (high fiber) BRADY SAMAYOA DO Aug 28, 2021 10:28
[2021-08-28 10:30] VITALS: BP 127/80
[2021-08-28 11:00] VITALS: BP 114/78
[2021-08-28 11:05] VITALS: BP 114/78
--- NOTE | 2021-08-28 11:44 | Anesthesia-General Post-Op ---
MAC Patient Condition Mental Status/LOC: Same as Preop Cardiovascular: Satisfactory Nausea/Vomiting: Absent Respiratory: Satisfactory Pain: Controlled Complications: Absent Post Op Complications Complications None Follow Up Care/Instructions Patient Instructions None needed. Anesthesiology Discharge Order Discharge Order Patient is doing well, no complaints, stable vital signs, no apparent adverse anesthesia problems. RISHABH ORTEGA DO Aug 28, 2021 11:44
--- NOTE | 2021-08-28 17:48 | OPERATIVE REPORT ---
DATE OF SERVICE: 08/28/2021 PREOPERATIVE DIAGNOSES: Gastroesophageal reflux disease and change in bowel habits. POSTOPERATIVE DIAGNOSES: Hiatal hernia, colon polyps. PROCEDURE: EGD with biopsies, colonoscopy with cold biopsy polypectomy x2. SURGEON: Brady Tirado DO ANESTHESIA: Per MDA. ESTIMATED BLOOD LOSS: None. COMPLICATIONS: None. INDICATIONS: The patient is a 61-year-old female with GERD and change in bowel habits. She understands risks and benefits of procedure and wished to proceed with procedure. Consent was signed in the chart. DESCRIPTION OF PROCEDURE: The patient was taken to the endoscopy suite, placed in left lateral recumbent position. Timeout was performed. Scope was inserted in mouth, down the esophagus, stomach and into the duodenum without difficulty. There were no polyps, masses or ulcerations within the duodenum. Scope was slowly retracted the stomach where it was further insufflated. No polyps, masses or ulcerations. Biopsy of the antrum was obtained. Scope was retroflexed, hiatal hernia noted. No other pathology. Scope was returned to its normal position, slowly withdrawn to distal esophagus. Biopsy of the GE junction was obtained. Scope was then slowly retracted back noting no other pathology. Digital rectal exam was performed. There were no palpable polyps, masses or ulcerations. Scope was inserted in the rectum and advanced all the way to cecum with minimal difficulty. Prep was adequate. Scope was slowly retracted back. There were no polyps, masses or ulcerations within the cecum, ascending, transverse, descending and sigmoid colon except for two very small polyps in the distal sigmoid colon, which cold biopsy polypectomy was performed on these. Scope was continuously retracted back into the rectum where it was also retroflexed noting no other pathology. Scope was retroflexed noting no other pathology. Scope was returned to its normal position, slowly withdrawn until completely removed. The patient tolerated procedure well without any complications. She was taken to recovery room in stable condition. RECOMMENDATIONS: The patient will follow up in the office to discuss results. Noting hiatal hernia and colon polyps. The patient will need repeat colonoscopy in 5 years. Any issues before that be seen at that time. We will try to get GERD symptoms under control. We would also possibly consider hiatal hernia repair if symptoms not able to get control. CC: [facility] -- requested, unable to deliver. Job ID: [id number] DocumentID: [id number] Dictated Date: 08/28/2021 10:38:03 Installation Engineer Date: 08/28/2021 17:47:14 Dictated By: BRADY TIRADO DO
== END 2021-08-28 11:05 | disposition home or self-care (01) ==
LOC: ENDO 07:58
PROVIDERS: ATTEND Surgery
DX: K44.9 Diaphragmatic hernia without obstruction or gangrene (principal); K63.5 Polyp of colon; K21.9 Gastro-esophageal reflux disease without esophagitis; F41.9 Anxiety disorder, unspecified; F32.A Depression, unspecified; G47.00 Insomnia, unspecified; Z88.5 Allergy status to narcotic agent; F17.210 Nicotine dependence, cigarettes, uncomplicated; Z79.899 Other long term (current) drug therapy

== ENCOUNTER 2022-03-25 14:14 | Emergency (ER) | payer MEDICAID ==
[~2022-03-25] VITALS: Ht 167.7 cm; Wt 58.9 kg
[~2022-03-25 14:14] MED LIST changes: +CYCL10TA25 PO; -CYCL10TA9 PO
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
[2022-03-25] MEDS ORDERED: oxyCODONE/APAP 5/325MG (PERCOCET 5) TABLET PO ONE (14:45)
[2022-03-25] MEDS ORDERED: oxyCODONE/APAP 10/325MG (PERCOCET 10) TABLET PO ONE (14:45)
[2022-03-25] MEDS ORDERED: KETOROLAC 30 MG/ML VIAL IM ONE (14:45)
[2022-03-25 14:48] LABS: BILIRUBIN,URINE NEGATIVE (NEGATIVE); CLARITY,URINE CLEAR; COLOR,URINE YELLOW; GLUCOSE, URINE (UA) NEGATIVE (NEGATIVE); KETONES,URINE NEGATIVE (NEGATIVE); LEUKOCYTE ESTERASE ,URINE TRACE (NEGATIVE); NITRITE,URINE NEGATIVE (NEGATIVE); PH,URINE 6.5 (5-9); PROTEIN,URINE NEGATIVE (NEGATIVE)
[2022-03-25 14:54] LABS: BACTERIA,URINE NEGATIVE /HPF; RBC,URINE RARE /HPF; SQUAMOUS EPITHELIAL CELL,UR RARE /HPF; WBC,URINE RARE /HPF
--- NOTE | 2022-03-25 15:22 | Diagnostic Imaging Report ---
PROCEDURE: CT abdomen and pelvis without contrast. TECHNIQUE: Multiple contiguous axial images were obtained through the abdomen and pelvis without the use of intravenous contrast. Auto Exposure Controls were utilized during the CT exam to meet ALARA standards for radiation dose reduction. INDICATION: Back pain radiating into the left groin. COMPARISON: No priors. FINDINGS: No opaque urinary tract calculi. There is no hydroureteronephrosis. Liver, gallbladder, bile ducts, spleen, adrenals, and pancreas are all unremarkable at this unenhanced exam. Aortic atherosclerotic vascular calcifications are nonaneurysmal. There are no findings of appendicitis or focal diverticulitis. The urinary bladder is unremarkable. The uterus and adnexa are unremarkable. No pneumatosis. No free gas. There are degenerative changes to the lumbar spine, pelvis, and hips; no acute appearing bony pathology. The lung bases are nonacute. There is no free fluid. There are no findings of intra- or retro-peritoneal hemorrhage. IMPRESSION: No hemorrhage, fracture, obstruction, inflammatory process, or other acute/post-traumatic abnormalities. Dictated by: Dictated on workstation # [id number]
[2022-03-25 15:41] VITALS: BP 143/78
== END 2022-03-25 15:41 | disposition home or self-care (01) ==
LOC: EDUNIT# 14:14 → ER 14:16
DX: M25.552 Pain in left hip (principal); W18.49XA Other slipping, tripping and stumbling without falling, initial encounter
CPT/HCPCS: 74176; 81000

== ENCOUNTER → 2022-11-06 | Outpatient (CLI) | payer MEDICAID ==
[~2022-11-06] MED LIST changes: +ALBU8.5H6 IH; +REGADENOSON 0.4 MG/5 ML SYR (LEXISCAN) IV ONE; -RT-ALBUINH IH
[2022-11-06 09:34] VITALS: BP 134/68
--- NOTE | 2022-11-06 12:15 | Cardiology Stress Test Report ---
Stress Test Report Date of Procedure/Referring: Date of Procedure: Nov 06, 2022 [facility] Admitting Physician Admitting Physician: Attending Physician: Jessica Villanueva Indications: HTN Baseline Heart Rate: 51 Baseline Blood Pressure: Blood Pressure Systolic: 134 Blood Pressure Diastolic: 68 Baseline Vitals Vital Signs Date Time Temp Pulse Resp B/P (MAP) Pulse Ox O2 Delivery O2 Flow Rate FiO2 11/06/22 09:34 54 134/68 (90) Baseline EKG: Baseline EKG: NSR Summary After explaining the procedure to the patient, she signed a consent and then brought to the stress nuclear laboratory. Patient received 0.4 mg Lexiscan for stress test, ECG, heart rate and blood pressure were monitored continuously. Resting and stress dose of radio tracer were injected, imaging was acquired and reviewed in short axis, horizontal long axis and vertical long axis views. SSS: 2 SDS: 0 EF: 70 1. Patient had chest pain during Lexiscan injection. Continue to have chest pain did not respond to nitroglycerin. No EKG changes were noted. 2. No significant ischemia or infarction on SPECT images 3. Normal left ventricular size, ejection fraction 70% Copy Copies To 1: [facility]/TJ MINER MD Nov 06, 2022 12:15
== END ==
LOC: CARD 07:13
PROVIDERS: ATTEND Physician Assistant
DX: R07.9 Chest pain, unspecified (principal); I10 Essential (primary) hypertension
CPT/HCPCS: 78452; 93017; A9502

== ENCOUNTER → 2022-11-12 | Outpatient (CLI) | payer MEDICAID ==
[~2022-11-12] MED LIST changes: -REGADENOSON 0.4 MG/5 ML SYR (LEXISCAN) IV ONE
== END ==
LOC: CARD 13:56
PROVIDERS: ATTEND Physician Assistant
DX: I10 Essential (primary) hypertension (principal); I25.10 Atherosclerotic heart disease of native coronary artery without angina pectoris
CPT/HCPCS: 93306